=== PATIENT | male | born 1980 | race Hispanic/Latino ===

== ENCOUNTER 2017-10-08 23:55 | Inpatient (IN) | payer OTHER ==
[2017-10-09 00:57] LABS: BASO # 0.1 K/uL (0.0-0.2); BASO % 0.4 % (0.0-2.0); EOS % 0.1 % (0.0-4.0); HEMOGLOBIN 15.5 g/dL (12.0-18.0); LYMPH # 1.7 K/uL (1.0-4.3); LYMPH % 12.5 % (20.0-40.0); MEAN CELL VOLUME 83.9 fL (80.0-94.0); MEAN CORPUSCULAR HEMOGLOBIN 28.3 pg (27.0-31.0); MEAN CORPUSCULAR HGB CONC 33.7 g/dL (33.0-37.0); MEAN PLATELET VOLUME 8.5 fL (7.2-11.7); MONO # 0.8 K/uL (0.0-0.8); NEUT # 11.2 K/uL (1.8-7.0); RBC 5.48 Mil/uL (4.40-5.90); RED CELL DISTRIBUTION WIDTH 13.3 % (11.5-14.5); WHITE BLOOD COUNT 13.8 K/uL (4.8-10.8)
--- NOTE | 2017-10-09 01:04 | C.PDOC ---
History Of Present Illness 36 year old male with prior history is heroin abuse presents to the ED for evaluation of chest pain for a few days. Patient reports pain is mostly right upper back radiating towards the front, worsens with deep breaths. Patient admits to using heroin today, however patient states " I am not an addict, I only use heroin recreationally". Patient denies injury, fall, trauma, nausea, vomit, diarrhea, weakness, numbness. Time Seen by Provider: 10/09/17 00:10 Chief Complaint (Nursing): Chest Pain History Per: Patient History/Exam Limitations: no limitations Onset/Duration Of Symptoms: Days Current Symptoms Are (Timing): Still Present Associated Symptoms: denies: Nausea, Dyspnea, Diaphoresis Exacerbating Factors: Deep Breathing Alleviating Factors: None Recent travel outside of the [place]: No Additional History Per: Patient Past Medical History Reviewed: Historical Data, Nursing Documentation, Vital Signs Vital Signs: Last Vital Signs Temp 98.8 F 10/09/17 06:20 Pulse 65 10/09/17 06:20 Resp 18 10/09/17 07:47 BP 113/74 10/09/17 06:20 Pulse Ox 98 10/09/17 06:20 - Medical History PMH: No Chronic Diseases Surgical History: No Surg Hx Family History: States: Unknown Family Hx - Social History Hx Alcohol Use: No (DENIED) Hx Substance Use: Yes Review Of Systems Except As Marked, All Systems Reviewed And Found Negative. Cardiovascular: Positive for: Chest Pain Musculoskeletal: Positive for: Back Pain Physical Exam - Physical Exam Appears: Non-toxic, No Acute Distress Skin: Normal Color, Warm, Dry Head: Atraumatic, Normacephalic Eye(s): bilateral: Normal Inspection Neck: Normal ROM, Supple Chest: Symmetrical Cardiovascular: Rhythm Regular Respiratory: Normal Breath Sounds, No Rales, No Rhonchi, No Wheezing Gastrointestinal/Abdominal: Soft, No Tenderness, No Guarding, No Rebound Extremity: Normal ROM, No Tenderness, No Swelling Neurological/Psych: Oriented x3, Normal Speech Gait: Steady ED Course And Treatment - Laboratory Results Result Diagrams: 10/09/17 05:09 10/09/17 05:09 ECG: Interpreted By Me, Viewed By Me ECG Rhythm: Sinus Rhythm ECG Interpretation: Normal, No Acute Changes Rate From EC (BPM) O2 Sat by Pulse Oximetry: 95 (On RA) Pulse Ox Interpretation: Normal - CT Scan/US CTA chest Other Rad Studies (CT/US): Read By Radiologist, Radiology Report Reviewed CT/US Interpretation: EXAM: CT Angiography Chest Without And With Intravenous Contrast. CT Angiography Abdomen and Pelvis Without And With Intravenous Contrast. CLINICAL HISTORY: 36 years old, male; Pain; Other: Back; Chest pain ; Type not specified; Additional info: Cp/back pain. elevated dimer h/o of ivda. TECHNIQUE: Axial computed tomographic angiography images of the chest, abdomen and pelvis without and with. intravenous contrast using CT angiography protocol. All CT scans at this facility use at least one of. these dose optimization techniques: automated exposure control; mA and/or kV adjustment per. patient size (includes targeted exams where dose is matched to clinical indication); or iterative. reconstruction. 1141 images are submitted.Sagittal and coronal MPR reformatted images are. submitted focal enhanced and unenhanced images. CONTRAST: 100 mL of [id number] administered intravenously. COMPARISON: No relevant prior studies available. FINDINGS: VASCULATURE: Aorta: No acute findings. No aortic aneurysm. No dissection. Pulmonary arteries : Unremarkable. No pulmonary embolism is identified. Great vessels of aortic arch: No acute findings. No dissection. No arterial occlusion or significant. stenosis. Celiac trunk and mesenteric arteries: No acute findings. No occlusion or significant stenosis. Renal arteries: No acute findings. No occlusion or significant stenosis. Iliac arteries: No acute findings. No occlusion or significant stenosis. CHEST: ALY ELLIS | Preliminary Radiology Report. CONFIDENTIALITY STATEMENT. This report is intended only for the use of the referring physician , and only in accordance with law, If you received this in error, call . Page 2 of 2. Lungs: Mild parabronchial cuffing, with basilar haziness which can be seen with bronchitis, reactive. airway disease or viral pneumonitis versus mild failure. Pleural space: Unremarkable. No significant effusion. No pneumothorax. Heart: Minimal pericardial fluid. Mediastinum: Small hiatal hernia. ABDOMEN: Liver: Fatty liver. Gallbladder and bile ducts : Hyperdense gallbladder sludge or stones. No ductal dilation. Pancreas: Unremarkable. No ductal dilation. No mass. Spleen: Heterogeneous spleen secondary to phase of scanning. Adrenals: Unremarkable. No mass. Kidneys and ureters: Faint densities in the medullary regions of both kidneys are somewhat. nonspecific, perhaps reflecting dense solute, Demetri's plaque, tiny calcifications, or other debris. Nonobstructive left renal stone. Stomach and bowel: Diverticulosis. Nonspecific colonic thickening likely due to under distention. versus nonspecific colitis. There are nonspecific fluid filled stomach, small bowel loops. These. findings can represent ileus versus gastroenteritis/enteritis versus slow transit versus peristalsis. PELVIS: Appendix: Normal appendix. Bladder: Unremarkable. No stones. No mass. Reproductive: Unremarkable. CHEST, ABDOMEN and PELVIS: Intraperitoneal space: Unremarkable. No significant fluid collection. No free air. Bones/joints: L5- S1 vacuum disc. No acute fracture. No dislocation. Soft tissues: There is a fat -containing umbilical hernia. Lymph nodes: Right hilar lymph nodes. IMPRESSION : 1. Mild parabronchial cuffing, with basilar haziness which can be seen with bronchitis, reactive airway. disease or viral pneumonitis versus mild failure. 2. No acute vascular abnormalities identified. Thank you for allowing us to participate in the care of your patient. Dictated and Authenticated by: Maryjane Blanchard MD. 10/09/2017 3:06 AM Eastern Time ([place] & [place]) Medical Decision Making Medical Decision Making: cp/back pain ro dissection, pe, epidural abscess Plan: * EKG * Labs * CXR * Tylenol 975 mg PO * Zofran 4 mg IVP * UA * noted dimer. suspcion of dissection vs pe. b/p also 90s systolic. concern that pt may need tpa for possible massive pe. discussed risk benefit with pt. consent for iv contrast. Disposition - Disposition Disposition: AGAINST MEDICAL ADVICE Disposition Time: 04:00 Condition: STABLE - Clinical Impression Clinical Impression: Chest pain, Elevated d-dimer, Renal insufficiency, Back pain, Leukocytosis - Scribe Statement The provider has reviewed the documentation as recorded by the Scribe Jeff Bolanos All medical record entries made by the Scribe were at my direction and personally dictated by me. I have reviewed the chart and agree that the record accurately reflects my personal performance of the history, physical exam, medical decision making, and the department course for this patient. I have also personally directed, reviewed, and agree with the discharge instructions and disposition.
[2017-10-09 01:14] LABS: ALB/GLOB RATIO 1.4 (1.0-2.1); ALBUMIN 4.6 g/dL (3.5-5.0); CALCIUM 9.3 mg/dl (8.6-10.4)
[2017-10-09 01:25] LABS: TROPONIN I 0.015 ng/mL (0.00-0.120)
[2017-10-09 01:44] LABS: INR 1.1; PROTHROMBIN TIME 12.2 SECONDS (9.7-12.2)
[2017-10-09] MEDS ORDERED: Sodium Chloride 0.9% 1,000 ML IV ONE ×2 (01:50→05:55)
[2017-10-09] MEDS ORDERED: Sodium Chloride 0.9% 1,000 ML ONE ×2 (02:02→03:38)
[2017-10-09] MEDS ORDERED: Iodixanol 320 MG/ML 100 ML BOTTLE IV ONE (02:07)
[2017-10-09 02:29] LABS: GRANULAR CAST 341 /lpf (0-1); SQUAMOUS EPITHIAL 5 /hpf (0-5); URINE BACTERIA RARE (<OCC); URINE BILIRUBIN NEGATIVE (NEGATIVE); URINE BLOOD NEGATIVE (NEGATIVE); URINE CLARITY Hazy (Clear); URINE COLOR Amber (YELLOW); URINE GLUCOSE (UA) NORMAL (Normal); URINE HYALINE CAST >20 /lpf (0-2); URINE LEUKOCYTE ESTERASE NEG Leu/uL (Negative); URINE PROTEIN 2+ mg/dL (NEGATIVE); URINE UROBILINOGEN NORMAL mg/dL (0.2-1.0)
[2017-10-09] MEDS ORDERED: DEXTROSE 5% IVPB STA ×2 (03:11→03:26)
[2017-10-09] MEDS ORDERED: WATER IVPB STA ×2 (03:11→03:26)
[2017-10-09] MEDS ORDERED: ACETYLCYSTEINE IVPB STA ×2 (03:11→03:26)
[2017-10-09] MEDS ORDERED: Sodium Chloride 0.9% 1,000 ML IV SCH ×2 (03:15→03:45)
--- NOTE | 2017-10-09 03:49 | CP.PCM.HP ---
<Aashish Sanchez P - Last Filed: 10/09/17 06:34> Meds Allergies/Adverse Reactions: Allergies Allergy/AdvReac Type Severity Reaction Status Date / Time No Known Allergies Allergy Unverified 10/09/17 00:10 Results - Vital Signs Recent Vital Signs: Last Vital Signs Temp 98.5 F 10/09/17 05:44 Pulse 67 10/09/17 05:44 Resp 20 10/09/17 05:44 BP 100/65 10/09/17 05:44 Pulse Ox 99 10/09/17 05:44 - Labs Result Diagrams: 10/09/17 05:09 10/09/17 05:09 Labs: Laboratory Results - last 24 hr 10/09/17 10/09/17 10/09/17 00:49 00:49 00:49 WBC 13.8 H RBC 5.48 Hgb 15.5 Hct 45.9 MCV 83.9 MCH 28.3 MCHC 33.7 RDW 13.3 Plt Count 407 H MPV 8.5 Neut % (Auto) 81.0 H Lymph % (Auto) 12.5 L [place] % (Auto) 6.0 Eos % (Auto) 0.1 Baso % (Auto) 0.4 Neut # (Auto) 11.2 H Lymph # (Auto) 1.7 [place] # (Auto) 0.8 Eos # (Auto) 0.0 Baso # (Auto) 0.1 PT 12.2 INR 1.1 APTT 34 D-Dimer, Quantitative 2716 H Sodium 145 Potassium 5.2 Chloride 101 Carbon Dioxide 29 Anion Gap 20 BUN 26 H Creatinine 1.9 H Est GFR ( Amer) 49 Est GFR (Non-Af Amer) 41 Random Glucose 113 H Calcium 9.3 Phosphorus Magnesium Total Bilirubin 0.8 AST 22 ALT 28 Alkaline Phosphatase 75 Troponin I 0.0150 Total Protein 7.9 Albumin 4.6 Globulin 3.3 Albumin/Globulin Ratio 1.4 Triglycerides Cholesterol LDL Cholesterol Direct HDL Cholesterol Free T4 TSH 3rd Generation Urine Color Urine Clarity Urine pH Ur Specific [place] Urine Protein Urine Glucose (UA) Urine Ketones Urine Blood Urine Nitrate Urine Bilirubin Urine Urobilinogen Ur Leukocyte Esterase Urine WBC (Auto) Urine RBC (Auto) Ur Squamous Epith Cells Urine Bacteria Hyaline Casts Granular Casts (Auto) 10/09/17 10/09/17 10/09/17 02:17 05:09 05:09 WBC 10.7 RBC 5.07 Hgb 14.6 Hct 42.5 MCV 83.9 MCH 28.7 MCHC 34.3 RDW 13.0 Plt Count 354 MPV 8.5 Neut % (Auto) 69.3 Lymph % (Auto) 21.8 [place] % (Auto) 8.1 Eos % (Auto) 0.4 Baso % (Auto) 0.4 Neut # (Auto) 7.4 H Lymph # (Auto) 2.3 [place] # (Auto) 0.9 H Eos # (Auto) 0.0 Baso # (Auto) 0.0 PT INR APTT D-Dimer, Quantitative Sodium 140 Potassium 4.7 Chloride 102 Carbon Dioxide 28 Anion Gap 15 BUN 25 H Creatinine 1.4 Est GFR ( Amer) > 60 Est GFR (Non-Af Amer) 58 Random Glucose 102 Calcium 8.4 L Phosphorus 3.7 Magnesium 2.0 Total Bilirubin 0.8 AST 20 ALT 28 Alkaline Phosphatase 63 Troponin I Total Protein 6.9 Albumin 3.9 Globulin 3.0 Albumin/Globulin Ratio 1.3 Triglycerides Cholesterol LDL Cholesterol Direct HDL Cholesterol Free T4 TSH 3rd Generation Urine Color Mayra Urine Clarity Hazy Urine pH 6.0 Ur Specific [place] 1.024 Urine Protein 2+ H Urine Glucose (UA) Normal Urine Ketones Negative Urine Blood Negative Urine Nitrate Negative Urine Bilirubin Negative Urine Urobilinogen Normal Ur Leukocyte Esterase Neg Urine WBC (Auto) 33 H Urine RBC (Auto) 12 H Ur Squamous Epith Cells 5 Urine Bacteria Rare Hyaline Casts >20 H Granular Casts (Auto) 341 10/09/17 10/09/17 05:09 05:09 WBC RBC Hgb Hct MCV MCH MCHC RDW Plt Count MPV Neut % (Auto) Lymph % (Auto) [place] % (Auto) Eos % (Auto) Baso % (Auto) Neut # (Auto) Lymph # (Auto) [place] # (Auto) Eos # (Auto) Baso # (Auto) PT INR APTT D-Dimer, Quantitative Sodium Potassium Chloride Carbon Dioxide Anion Gap BUN Creatinine Est GFR ( Amer) Est GFR (Non-Af Amer) Random Glucose Calcium Phosphorus Magnesium Total Bilirubin AST ALT Alkaline Phosphatase Troponin I Total Protein Albumin Globulin Albumin/Globulin Ratio Triglycerides 97 Cholesterol 149 LDL Cholesterol Direct 76 HDL Cholesterol 35 Free T4 1.00 TSH 3rd Generation 2.50 Urine Color Urine Clarity Urine pH Ur Specific [place] Urine Protein Urine Glucose (UA) Urine Ketones Urine Blood Urine Nitrate Urine Bilirubin Urine Urobilinogen Ur Leukocyte Esterase Urine WBC (Auto) Urine RBC (Auto) Ur Squamous Epith Cells Urine Bacteria Hyaline Casts Granular Casts (Auto) Attending/Attestation - Attestation I have personally seen and examined this patient.: Yes I have fully participated in the care of the patient.: Yes I have reviewed all pertinent clinical information: Yes Notes (Text): 10/09/17 06:34 Right side back/chest pain likely form cervical radiculopathy GE Pre renal and ATN picture IV contrast Plan Hydrate Supportive care for GE GI/DVT prophylaxis Avoid any nephrotoxic meds PRN cervical soft collar, tramadol See orders for detail. <Asia Feng - Last Filed: 10/09/17 06:50> History of Present Illness - History of Present Illness History of Present Illness: Medicine Note for Hospitalist Service CC: Right sided back pain that radiates to the chest x 1 week, n/v/d x 2 days HPI: This is a 36 year old male with PMHx of IVDA who presented to the ED with right sided back pain that radiates to the chest x 1 week, n/v/d x 2 days. Patient reports 1 week ago, patient started to feel upper right back pain that was constant, sharp, stabbing in nature 610, that radiated to the middle aspect of his chest. Denied any associated diaphoresis, palpitations, dyspnea on exertion, fatigue, or shortness of breath. Patient reports the pain is worse based on position, deep inspiration and cough. Due to the pain, he had to sleep slightly inclined. Nothing makes the pain better, did not try any OTC medications for the pain. The pain remained the same throughout the week. Patient was able to go to work and carry on with his daily activities. During this 1 week, patient relapsed on heroine, denied any incident or stressors that provoked him to relapse from 5 years of sobriety. He used 1 bag, on 2 separate occasions 2 days apart after the back pain started. Patient started to have nausea, vomiting, and diarrhea 2 days prior to admission, with 5-10 nonbloody, bilious episodes per day. He has been unable to keep any food or liquids down. Admitted his girlfriend has similar symptoms. Denied any associated fever, chills, recent travel, unusual or outside food. PMHx: Hx IVDA PSHx: Denied Meds: Denied All: NKDA SHx: Admitted to heroine use, used for 2-3 years, 2-3 bags, 1-2 times a week; was clean for 5 years after, relapsed and used twice last week- 1 bag IV); denied any tobacco or alcohol use. 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 FHx: Unremarkable for cardiac issues, stroke, or cancer Present on Admission - Present on Admission Any Indicators Present on Admission: No Past Patient History - Past Social History Smoking Status: DENIED - PSYCHIATRIC Hx Substance Use: Yes - SURGICAL HISTORY Hx Surgeries: No Physical Exam - Constitutional Appears: No Acute Distress - Head Exam Head Exam: ATRAUMATIC, NORMAL INSPECTION, NORMOCEPHALIC - Eye Exam Eye Exam: EOMI, Normal appearance, PERRL. absent: Nystagmus, Scleral icterus Pupil Exam: NORMAL ACCOMODATION, PERRL - ENT Exam ENT Exam: Mucous Membranes Dry - Neck Exam Neck exam: Positive for: Full Rom, Normal Inspection. Negative for: Lymphadenopathy, Thyromegaly Additional comments: Spurling exam performed - caused radiation to right upper back - Respiratory Exam Respiratory Exam: NORMAL BREATHING PATTERN. absent: Decreased Breath Sounds, Clear to Auscultation Bilateral, Rales, Rhonchi, Wheezes - Cardiovascular Exam Cardiovascular Exam: REGULAR RHYTHM, +S1, +S2. absent: Bradycardia, Tachycardia , Diastolic murmur, Systolic Murmur - GI/Abdominal Exam GI & Abdominal Exam: Normal Bowel Sounds, Soft. absent: Distended, Tenderness - Rectal Exam Rectal Exam: Deferred - Extremities Exam Extremities exam: Positive for: normal inspection, pedal pulses present. Negative for: pedal edema, tenderness Additional comments: multiple scars noted on upper and lower extremities - patient reports 2/2 to his construction job no tract lizama noted - Back Exam Back exam: FULL ROM, NORMAL INSPECTION. absent: CVA tenderness (L), CVA tenderness (R), muscle spasm, paraspinal tenderness, rash noted, tenderness, vertebral tenderness - Neurological Exam Neurological exam: Alert, CN II-XII Intact, Oriented x3 - Psychiatric Exam Psychiatric exam: Normal Affect, Normal Mood - Skin Skin Exam: Dry, Intact, Normal Color, Warm Results - Vital Signs Recent Vital Signs: Last Vital Signs Temp 98.2 F 10/09/17 02:47 Pulse 66 10/09/17 02:47 Resp 20 10/09/17 02:47 BP 93/47 L 10/09/17 02:47 Pulse Ox 95 10/09/17 03:20 - Labs Result Diagrams: 10/09/17 05:09 10/09/17 05:09 Labs: Laboratory Results - last 24 hr 10/09/17 10/09/17 10/09/17 00:49 00:49 00:49 WBC 13.8 H RBC 5.48 Hgb 15.5 Hct 45.9 MCV 83.9 MCH 28.3 MCHC 33.7 RDW 13.3 Plt Count 407 H MPV 8.5 Neut % (Auto) 81.0 H Lymph % (Auto) 12.5 L [place] % (Auto) 6.0 Eos % (Auto) 0.1 Baso % (Auto) 0.4 Neut # (Auto) 11.2 H Lymph # (Auto) 1.7 [place] # (Auto) 0.8 Eos # (Auto) 0.0 Baso # (Auto) 0.1 PT 12.2 INR 1.1 APTT 34 D-Dimer, Quantitative 2716 H Sodium 145 Potassium 5.2 Chloride 101 Carbon Dioxide 29 Anion Gap 20 BUN 26 H Creatinine 1.9 H Est GFR ( Amer) 49 Est GFR (Non-Af Amer) 41 Random Glucose 113 H Calcium 9.3 Total Bilirubin 0.8 AST 22 ALT 28 Alkaline Phosphatase 75 Troponin I 0.0150 Total Protein 7.9 Albumin 4.6 Globulin 3.3 Albumin/Globulin Ratio 1.4 Urine Color Urine Clarity Urine pH Ur Specific [place] Urine Protein Urine Glucose (UA) Urine Ketones Urine Blood Urine Nitrate Urine Bilirubin Urine Urobilinogen Ur Leukocyte Esterase Urine WBC (Auto) Urine RBC (Auto) Ur Squamous Epith Cells Urine Bacteria Hyaline Casts Granular Casts (Auto) 10/09/17 02:17 WBC RBC Hgb Hct MCV MCH MCHC RDW Plt Count MPV Neut % (Auto) Lymph % (Auto) [place] % (Auto) Eos % (Auto) Baso % (Auto) Neut # (Auto) Lymph # (Auto) [place] # (Auto) Eos # (Auto) Baso # (Auto) PT INR APTT D-Dimer, Quantitative Sodium Potassium Chloride Carbon Dioxide Anion Gap BUN Creatinine Est GFR ( Amer) Est GFR (Non-Af Amer) Random Glucose Calcium Total Bilirubin AST ALT Alkaline Phosphatase Troponin I Total Protein Albumin Globulin Albumin/Globulin Ratio Urine Color [place]ra Urine Clarity Hazy Urine pH 6.0 Ur Specific [place] 1.024 Urine Protein 2+ H Urine Glucose (UA) Normal Urine Ketones Negative Urine Blood Negative Urine Nitrate Negative Urine Bilirubin Negative Urine Urobilinogen Normal Ur Leukocyte Esterase Neg Urine WBC (Auto) 33 H Urine RBC (Auto) 12 H Ur Squamous Epith Cells 5 Urine Bacteria Rare Hyaline Casts >20 H Granular Casts (Auto) 341 Assessment & Plan - Assessment and Plan (Free Text) Assessment: This is a 36 year old male with PMHx of IVDA who presented to the ED with right sided back pain that radiates to the chest x 1 week, n/v/d x 2 days. Aortic Dissection study ordered - negative. Currently in NAVEEN, admitted for IV hydration. Plan: NAVEEN - On admission creatinine 1.9 - Received IV contrast for dissection study - Given 2 L bolus, currently on IVF @150 cc/hr - Creatinine 1.4 this morning - Will continue IVF, Mucomyst 3ml PO Q12H x 2 doses, and oral hydration Back Pain with radiation to Chest - EKG NSR @ 74 BPM, BHARATHI negative - D-dimer elevated at 2716 - Aortic Dissection Study Ordered by ED - negative for PE or Dissection - Likely 2/2 neuropathy - No family history of cardiac issues, no risk factors - Reproducible during Spurling's exam - Will observe on Med/Surg floor, not cardiac in origin Leukocytosis - Likely stress reaction 2/2 to multiple episodes of nausea, vomiting, and diarrhea - Afebrile, left shift on admission, which has now resolved - No evidence of infectious process such as pneumonia or colitis on CT Scan - Resolved on repeat labs Hx IVDA - Admitted to prior heroine use - Relapsed from 5 years sobriety - Does not want detox now, on discharge will provide him with hotlines and centers for future reference - No fever, not concerned for endocarditis Prophylactic Measures - GI PPX: Protonix - DVT PPX: SCDs, HEP Q12 - FLD, will ADAT - Will observe on Med/Surg floor, not cardiac in origin ANGLE Sanchez, Asia Feng DO, PGY-2
[2017-10-09 05:13] LABS: BASO % 0.4 % (0.0-2.0); EOS % 0.4 % (0.0-4.0); HEMOGLOBIN 14.6 g/dL (12.0-18.0); LYMPH # 2.3 K/uL (1.0-4.3); LYMPH % 21.8 % (20.0-40.0); MEAN CELL VOLUME 83.9 fL (80.0-94.0); MEAN CORPUSCULAR HEMOGLOBIN 28.7 pg (27.0-31.0); MEAN CORPUSCULAR HGB CONC 34.3 g/dL (33.0-37.0); MEAN PLATELET VOLUME 8.5 fL (7.2-11.7); MONO # 0.9 K/uL (0.0-0.8); MONO % 8.1 % (0.0-10.0); NEUT # 7.4 K/uL (1.8-7.0); NEUT % 69.3 % (50.0-75.0); NRBC % 0.1 % (0.0-2.0); RBC 5.07 Mil/uL (4.40-5.90); WHITE BLOOD COUNT 10.7 K/uL (4.8-10.8)
[2017-10-09 05:29] LABS: ALB/GLOB RATIO 1.3 (1.0-2.1); ALBUMIN 3.9 g/dL (3.5-5.0); ALT/SGPT 28 U/L (21-72); AST/SGOT 20 U/L (17-59); BLOOD UREA NITROGEN 25 mg/dL (9-20); CALCIUM 8.4 mg/dl (8.6-10.4); GFR AFRICAN-AMERICAN > 60; GFR NON-AFRICAN AMERICAN 58
[2017-10-09 06:42] VITALS: BP 113/74; PULSE 65; TEMP 98.8
[2017-10-09 07:48] VITALS: RESP 18
[2017-10-09] MEDS ORDERED: Albuterol-Ipratrop 3 mg / 0.5 (3 ml) UD INH SCH (08:00)
--- NOTE | 2017-10-09 08:05 | CP.PCM.DIS ---
<Asia Feng - Last Filed: 10/09/17 08:03> Provider - Provider Date of Admission: 10/09/17 03:12 Attending physician: Deysi Mathis DO Time Spent in preparation of Discharge (in minutes): 55 Hospital Course - Lab Results Lab Results: Most Recent Lab Values WBC 10.7 K/uL (4.8-10.8) 10/09/17 05:09 RBC 5.07 Mil/uL (4.40-5.90) 10/09/17 05:09 Hgb 14.6 g/dL (12.0-18.0) 10/09/17 05:09 Hct 42.5 % (35.0-51.0) 10/09/17 05:09 MCV 83.9 fL (80.0-94.0) 10/09/17 05:09 MCH 28.7 pg (27.0-31.0) 10/09/17 05:09 MCHC 34.3 g/dL (33.0-37.0) 10/09/17 05:09 RDW 13.0 % (11.5-14.5) 10/09/17 05:09 Plt Count 354 K/uL (130-400) 10/09/17 05:09 MPV 8.5 fL (7.2-11.7) 10/09/17 05:09 Neut % (Auto) 69.3 % (50.0-75.0) 10/09/17 05:09 Lymph % (Auto) 21.8 % (20.0-40.0) 10/09/17 05:09 [place] % (Auto) 8.1 % (0.0-10.0) 10/09/17 05:09 Eos % (Auto) 0.4 % (0.0-4.0) 10/09/17 05:09 Baso % (Auto) 0.4 % (0.0-2.0) 10/09/17 05:09 Neut # (Auto) 7.4 K/uL (1.8-7.0) H 10/09/17 05:09 Lymph # (Auto) 2.3 K/uL (1.0-4.3) 10/09/17 05:09 [place] # (Auto) 0.9 K/uL (0.0-0.8) H 10/09/17 05:09 Eos # (Auto) 0.0 K/uL (0.0-0.7) 10/09/17 05:09 Baso # (Auto) 0.0 K/uL (0.0-0.2) 10/09/17 05:09 PT 12.2 SECONDS (9.7-12.2) 10/09/17 00:49 INR 1.1 10/09/17 00:49 APTT 34 SECONDS (21-34) 10/09/17 00:49 D-Dimer, Quantitative 2716 ng/mlDDU (0-243) H 10/09/17 00:49 Sodium 140 mmol/L (132-148) 10/09/17 05:09 Potassium 4.7 mmol/L (3.6-5.2) 10/09/17 05:09 Chloride 102 mmol/L (98-107) 10/09/17 05:09 Carbon Dioxide 28 mmol/L (22-30) 10/09/17 05:09 Anion Gap 15 (10-20) 10/09/17 05:09 BUN 25 mg/dL (9-20) H 10/09/17 05:09 Creatinine 1.4 mg/dL (0.8-1.5) 10/09/17 05:09 Est GFR ( Amer) > 60 10/09/17 05:09 Est GFR (Non-Af Amer) 58 10/09/17 05:09 Random Glucose 102 mg/dL (75-110) 10/09/17 05:09 Calcium 8.4 mg/dl (8.6-10.4) L 10/09/17 05:09 Phosphorus 3.7 mg/dL (2.5-4.5) 10/09/17 05:09 Magnesium 2.0 mg/dL (1.6-2.3) 10/09/17 05:09 Total Bilirubin 0.8 mg/dL (0.2-1.3) 10/09/17 05:09 AST 20 U/L (17-59) 10/09/17 05:09 ALT 28 U/L (21-72) 10/09/17 05:09 Alkaline Phosphatase 63 U/L (38-126) 10/09/17 05:09 Troponin I 0.0150 ng/mL (0.00-0.120) 10/09/17 00:49 Total Protein 6.9 g/dL (6.3-8.3) 10/09/17 05:09 Albumin 3.9 g/dL (3.5-5.0) 10/09/17 05:09 Globulin 3.0 gm/dL (2.2-3.9) 10/09/17 05:09 Albumin/Globulin Ratio 1.3 (1.0-2.1) 10/09/17 05:09 Triglycerides 97 mg/dL (0-149) 10/09/17 05:09 Cholesterol 149 mg/dL (0-199) 10/09/17 05:09 LDL Cholesterol Direct 76 mg/dL (0-129) 10/09/17 05:09 HDL Cholesterol 35 mg/dL (30-70) 10/09/17 05:09 Free T4 1.00 ng/dL (0.78-2.19) 10/09/17 05:09 TSH 3rd Generation 2.50 mIU/L (0.46-4.68) 10/09/17 05:09 Urine Color Mayra (YELLOW) 10/09/17 02:17 Urine Clarity Hazy (Clear) 10/09/17 02:17 Urine pH 6.0 (5.0-8.0) 10/09/17 02:17 Ur Specific [place] 1.024 (1.003-1.030) 10/09/17 02:17 Urine Protein 2+ mg/dL (NEGATIVE) H 10/09/17 02:17 Urine Glucose (UA) Normal mg/dL (Normal) 10/09/17 02:17 Urine Ketones Negative mg/dL (NEGATIVE) 10/09/17 02:17 Urine Blood Negative (NEGATIVE) 10/09/17 02:17 Urine Nitrate Negative (NEGATIVE) 10/09/17 02:17 Urine Bilirubin Negative (NEGATIVE) 10/09/17 02:17 Urine Urobilinogen Normal mg/dL (0.2-1.0) 10/09/17 02:17 Ur Leukocyte Esterase Neg Ascencion/uL (Negative) 10/09/17 02:17 Urine WBC (Auto) 33 /hpf (0-5) H 10/09/17 02:17 Urine RBC (Auto) 12 /hpf (0-3) H 10/09/17 02:17 Ur Squamous Epith Cells 5 /hpf (0-5) 10/09/17 02:17 Urine Bacteria Rare (<OCC) 10/09/17 02:17 Hyaline Casts >20 /lpf (0-2) H 10/09/17 02:17 Granular Casts (Auto) 341 /lpf (0-1) 10/09/17 02:17 - Hospital Course Hospital Course: Upon Admission: CC: Right sided back pain that radiates to the chest x 1 week, n /v/d x 2 days HPI: This is a 36 year old male with PMHx of IVDA who presented to the ED with right sided back pain that radiates to the chest x 1 week, n/v/d x 2 days. Patient reports 1 week ago, patient started to feel upper right back pain that was constant, sharp, stabbing in nature 09/03, that radiated to the middle aspect of his chest. Denied any associated diaphoresis, palpitations, dyspnea on exertion, fatigue, or shortness of breath. Patient reports the pain is worse based on position, deep inspiration and cough. Due to the pain, he had to sleep slightly inclined. Nothing makes the pain better, did not try any OTC medications for the pain. The pain remained the same throughout the week. Patient was able to go to work and carry on with his daily activities. During this 1 week, patient relapsed on heroine, denied any incident or stressors that provoked him to relapse from 5 years of sobriety. He used 1 bag, on 2 separate occasions 2 days apart after the back pain started. Patient started to have nausea, vomiting, and diarrhea 2 days prior to admission, with 5-10 nonbloody, bilious episodes per day. He has been unable to keep any food or liquids down. Admitted his girlfriend has similar symptoms. Denied any associated fever, chills, recent travel, unusual or outside food. PMHx: Hx IVDA PSHx: Denied Meds: Denied All: NKDA SHx: Admitted to heroine use, used for 2-3 years, 2-3 bags, 1-2 times a week; was clean for 5 years after, relapsed and used twice last week- 1 bag IV); denied any tobacco or alcohol use. 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 FHx: Unremarkable for cardiac issues, stroke, or cancer Throughout Hospital Course: NAVEEN - On admission creatinine 1.9 - Received IV contrast for dissection study - Given 2 L bolus, currently on IVF @150 cc/hr - Creatinine 1.4 this morning - Will continue IVF, Mucomyst 3ml PO Q12H x 2 doses, and oral hydration Back Pain with radiation to Chest - EKG NSR @ 74 BPM, BHARATHI negative - D-dimer elevated at 2716 - Aortic Dissection Study Ordered by ED - negative for PE or Dissection - Likely 2/2 neuropathy - No family history of cardiac issues, no risk factors - Reproducible during Spurling's exam - Will observe on Med/Surg floor, not cardiac in origin Leukocytosis - Likely stress reaction 2/2 to multiple episodes of nausea, vomiting, and diarrhea - Afebrile, left shift on admission, which has now resolved - No evidence of infectious process such as pneumonia or colitis on CT Scan - Resolved on repeat labs Hx IVDA - Admitted to prior heroine use - Relapsed from 5 years sobriety - Does not want detox now, on discharge will provide him with hotlines and centers for future reference - No fever, not concerned for endocarditis Prophylactic Measures - GI PPX: Protonix - DVT PPX: SCDs, HEP Q12 - FLD, will ADAT - Will observe on Med/Surg floor, not cardiac in origin Disposition: Patient signed out against medical advice. Patient understood the risks of leaving against medical advice. He states he understands and signed the AMA form with the house resident and a witness. Discharge Exam - Additional Findings Additional findings: - Constitutional Appears: No Acute Distress - Head Exam Head Exam: ATRAUMATIC, NORMAL INSPECTION, NORMOCEPHALIC - Eye Exam Eye Exam: EOMI, Normal appearance, PERRL. absent: Nystagmus, Scleral icterus Pupil Exam: NORMAL ACCOMODATION, PERRL - ENT Exam ENT Exam: Mucous Membranes Dry - Neck Exam Neck exam: Positive for: Full Rom, Normal Inspection. Negative for: Lymphadenopathy, Thyromegaly Additional comments: Spurling exam performed - caused radiation to right upper back - Respiratory Exam Respiratory Exam: NORMAL BREATHING PATTERN. absent: Decreased Breath Sounds, Clear to Auscultation Bilateral, Rales, Rhonchi, Wheezes - Cardiovascular Exam Cardiovascular Exam: REGULAR RHYTHM, +S1, +S2. absent: Bradycardia, Tachycardia , Diastolic murmur, Systolic Murmur - GI/Abdominal Exam GI & Abdominal Exam: Normal Bowel Sounds, Soft. absent: Distended, Tenderness - Rectal Exam Rectal Exam: Deferred - Extremities Exam Extremities exam: Positive for: normal inspection, pedal pulses present. Negative for: pedal edema, tenderness Additional comments: multiple scars noted on upper and lower extremities - patient reports 2/2 to his construction job no tract lizama noted - Back Exam Back exam: FULL ROM, NORMAL INSPECTION. absent: CVA tenderness (L), CVA tenderness (R), muscle spasm, paraspinal tenderness, rash noted, tenderness, vertebral tenderness - Neurological Exam Neurological exam: Alert, CN II-XII Intact, Oriented x3 - Psychiatric Exam Psychiatric exam: Normal Affect, Normal Mood - Skin Skin Exam: Dry, Intact, Normal Color, Warm Discharge Plan - Follow Up Plan Condition: STABLE Disposition: AGAINST MEDICAL ADVICE Instructions: Back Pain (GEN) <Deysi Mathis V - Last Filed: 10/09/17 23:05> Provider - Provider Date of Admission: 10/09/17 03:12 Attending physician: Deysi Mathis DO [facility] Course - Lab Results Lab Results: Most Recent Lab Values WBC 10.7 K/uL (4.8-10.8) 10/09/17 05:09 RBC 5.07 Mil/uL (4.40-5.90) 10/09/17 05:09 Hgb 14.6 g/dL (12.0-18.0) 10/09/17 05:09 Hct 42.5 % (35.0-51.0) 10/09/17 05:09 MCV 83.9 fL (80.0-94.0) 10/09/17 05:09 MCH 28.7 pg (27.0-31.0) 10/09/17 05:09 MCHC 34.3 g/dL (33.0-37.0) 10/09/17 05:09 RDW 13.0 % (11.5-14.5) 10/09/17 05:09 Plt Count 354 K/uL (130-400) 10/09/17 05:09 MPV 8.5 fL (7.2-11.7) 10/09/17 05:09 Neut % (Auto) 69.3 % (50.0-75.0) 10/09/17 05:09 Lymph % (Auto) 21.8 % (20.0-40.0) 10/09/17 05:09 [place] % (Auto) 8.1 % (0.0-10.0) 10/09/17 05:09 Eos % (Auto) 0.4 % (0.0-4.0) 10/09/17 05:09 Baso % (Auto) 0.4 % (0.0-2.0) 10/09/17 05:09 Neut # (Auto) 7.4 K/uL (1.8-7.0) H 10/09/17 05:09 Lymph # (Auto) 2.3 K/uL (1.0-4.3) 10/09/17 05:09 [place] # (Auto) 0.9 K/uL (0.0-0.8) H 10/09/17 05:09 Eos # (Auto) 0.0 K/uL (0.0-0.7) 10/09/17 05:09 Baso # (Auto) 0.0 K/uL (0.0-0.2) 10/09/17 05:09 PT 12.2 SECONDS (9.7-12.2) 10/09/17 00:49 INR 1.1 10/09/17 00:49 APTT 34 SECONDS (21-34) 10/09/17 00:49 D-Dimer, Quantitative 2716 ng/mlDDU (0-243) H 10/09/17 00:49 Sodium 140 mmol/L (132-148) 10/09/17 05:09 Potassium 4.7 mmol/L (3.6-5.2) 10/09/17 05:09 Chloride 102 mmol/L (98-107) 10/09/17 05:09 Carbon Dioxide 28 mmol/L (22-30) 10/09/17 05:09 Anion Gap 15 (10-20) 10/09/17 05:09 BUN 25 mg/dL (9-20) H 10/09/17 05:09 Creatinine 1.4 mg/dL (0.8-1.5) 10/09/17 05:09 Est GFR ( Amer) > 60 10/09/17 05:09 Est GFR (Non-Af Amer) 58 10/09/17 05:09 Random Glucose 102 mg/dL (75-110) 10/09/17 05:09 Hemoglobin A1c 5.1 % (4.2-6.5) 10/09/17 05:09 Calcium 8.4 mg/dl (8.6-10.4) L 10/09/17 05:09 Phosphorus 3.7 mg/dL (2.5-4.5) 10/09/17 05:09 Magnesium 2.0 mg/dL (1.6-2.3) 10/09/17 05:09 Total Bilirubin 0.8 mg/dL (0.2-1.3) 10/09/17 05:09 AST 20 U/L (17-59) 10/09/17 05:09 ALT 28 U/L (21-72) 10/09/17 05:09 Alkaline Phosphatase 63 U/L (38-126) 10/09/17 05:09 Troponin I 0.0150 ng/mL (0.00-0.120) 10/09/17 00:49 Total Protein 6.9 g/dL (6.3-8.3) 10/09/17 05:09 Albumin 3.9 g/dL (3.5-5.0) 10/09/17 05:09 Globulin 3.0 gm/dL (2.2-3.9) 10/09/17 05:09 Albumin/Globulin Ratio 1.3 (1.0-2.1) 10/09/17 05:09 Triglycerides 97 mg/dL (0-149) 10/09/17 05:09 Cholesterol 149 mg/dL (0-199) 10/09/17 05:09 LDL Cholesterol Direct 76 mg/dL (0-129) 10/09/17 05:09 HDL Cholesterol 35 mg/dL (30-70) 10/09/17 05:09 Free T4 1.00 ng/dL (0.78-2.19) 10/09/17 05:09 TSH 3rd Generation 2.50 mIU/L (0.46-4.68) 10/09/17 05:09 Urine Color Mayra (YELLOW) 10/09/17 02:17 Urine Clarity Hazy (Clear) 10/09/17 02:17 Urine pH 6.0 (5.0-8.0) 10/09/17 02:17 Ur Specific [place] 1.024 (1.003-1.030) 10/09/17 02:17 Urine Protein 2+ mg/dL (NEGATIVE) H 10/09/17 02:17 Urine Glucose (UA) Normal mg/dL (Normal) 10/09/17 02:17 Urine Ketones Negative mg/dL (NEGATIVE) 10/09/17 02:17 Urine Blood Negative (NEGATIVE) 10/09/17 02:17 Urine Nitrate Negative (NEGATIVE) 10/09/17 02:17 Urine Bilirubin Negative (NEGATIVE) 10/09/17 02:17 Urine Urobilinogen Normal mg/dL (0.2-1.0) 10/09/17 02:17 Ur Leukocyte Esterase Neg Ascencion/uL (Negative) 10/09/17 02:17 Urine WBC (Auto) 33 /hpf (0-5) H 10/09/17 02:17 Urine RBC (Auto) 12 /hpf (0-3) H 10/09/17 02:17 Ur Squamous Epith Cells 5 /hpf (0-5) 10/09/17 02:17 Urine Bacteria Rare (<OCC) 10/09/17 02:17 Hyaline Casts >20 /lpf (0-2) H 10/09/17 02:17 Granular Casts (Auto) 341 /lpf (0-1) 10/09/17 02:17 Attending/Attestation - Attestation Notes (Text): Patient left against medical advice prior to my arrival. Patient was upset he was going to be searched by security, likely secondary to heroin.
[2017-10-09] MEDS ORDERED: Enoxaparin 40 mg Syringe SC SCH (10:00)
[2017-10-09] MEDS ORDERED: Pantoprazole 40 mg EC Tab PO SCH (10:00)
--- NOTE | 2017-10-09 10:15 | RAD ---
Date of service: 10/09/2017 HISTORY: chest pain COMPARISON: No prior. TECHNIQUE: Chest PA and lateral FINDINGS: LUNGS: No active pulmonary disease. PLEURA: No significant pleural effusion identified. No pneumothorax apparent. CARDIOVASCULAR: Normal. OSSEOUS STRUCTURES: No significant abnormalities. VISUALIZED UPPER ABDOMEN: Normal. OTHER FINDINGS: None. IMPRESSION: No active disease.
[2017-10-09] MEDS ORDERED: Acetylcysteine 20% Inhal Soln (4ml) PO SCH (12:00)
[2017-10-09] MEDS ORDERED: DEXTROSE 5% IVPB SCH (12:00)
[2017-10-09] MEDS ORDERED: WATER IVPB SCH (12:00)
[2017-10-09] MEDS ORDERED: ACETYLCYSTEINE IVPB SCH (12:00)
--- NOTE | 2017-10-09 12:01 | CT ---
PROCEDURE: CT Angiography Chest, Abdomen and Pelvis with and without intravenous contrast HISTORY: cp/back pain elevated dimer h/o of ivda COMPARISON: None. TECHNIQUE: Contiguous axial images of the chest, abdomen and pelvis were obtained in the phase of aortic enhancement. A noncontrast enhanced CT of the chest was also obtained to evaluate for possible intramural thrombus. Coronal and sagittal reformats were generated. IV dose administered: 100 mL Visipaque 320 Radiation dose: Total exam DLP = 1566.1 mGy-cm. This CT exam was performed using one or more of the following dose reduction techniques: Automated exposure control, adjustment of the mA and/or kV according to patient size, and/or use of iterative reconstruction technique. FINDINGS: CT ANGIOGRAPHY OF THE CHEST WITH & WITHOUT CONTRAST: AORTA (CHEST AND ABDOMEN): The thoracic and abdominal aorta are unremarkable, without aneurysm, dissection or rupture. No intramural thrombus identified in the thoracic aorta on the non-contrast ct of the chest. The celiac axis, superior mesenteric artery, inferior mesenteric artery and the renal arteries are widely patent. The pelvic arteries are unremarkable. LUNGS: Faint patchy ground-glass opacity in the right upper lobe. No nodule, mass or consolidation. MEDIASTINUM: Unremarkable. Normal caliber aorta and pulmonary arterial trunk. No aortic dissection. Normal size heart. LYMPH NODES: Unremarkable. PLEURA: Unremarkable. No pneumothorax. No pleural fluid. BONES: Unremarkable. OTHER FINDINGS: None. CT ANGIOGRAPHY OF THE ABDOMEN AND PELVIS WITH CONTRAST: LIVER: Unremarkable. No gross lesion or ductal dilatation. GALLBLADDER AND BILE DUCTS: Unremarkable. PANCREAS: Unremarkable. No gross lesion or ductal dilatation. SPLEEN: Unremarkable. ADRENALS: Unremarkable. No mass. KIDNEYS AND URETERS: Unremarkable. No hydronephrosis. No solid mass. VASCULATURE: Unremarkable. No aortic aneurysm. STOMACH AND BOWEL: Unremarkable. No obstruction. No gross mural thickening. APPENDIX: Normal appendix. PERITONEUM: Small fat containing umbilical hernia. No free fluid. No free air. LYMPH NODES: Unremarkable. No enlarged lymph nodes. BLADDER: Unremarkable. REPRODUCTIVE: Unremarkable. BONES: No acute fracture. OTHER FINDINGS: None. IMPRESSION: No evidence of aortic dissection. No gross central pulmonary embolism. Faint ground-glass opacity in the right upper lobe may be infectious/ inflammatory in etiology versus air trapping.
[2017-10-10 16:04] VITALS: O2SAT 95
--- NOTE | 2017-10-10 17:53 | CARD ---
APPROVED REPORT Date of service: 10/09/2017 EKG Measurement Heart [id number] <Conclusion> Normal sinus rhythm Normal ECG
== END 2017-10-09 07:37 | disposition left against medical advice (07) | DRG 684 ==
LOC: C.ER 23:55 → C.9E 10-09 03:12 → C.5S 10-09 07:28 → C.9E 10-09 07:40
PROVIDERS: ADMIT Internal Medicine; ATTEND Hospitalist
DX: N17.9 Acute kidney failure, unspecified (principal); R07.89 Other chest pain; D72.829 Elevated white blood cell count, unspecified; R79.1 Abnormal coagulation profile; F11.90 Opioid use, unspecified, uncomplicated

== ENCOUNTER 2017-10-21 21:06 | Emergency (ER) | payer OTHER ==
[2017-10-21 21:16] VITALS: TEMP 99.1
[2017-10-21] MEDS ORDERED: Naloxone 0.4 mg/ml Inj (Adult) IV ONE ×2 (21:18→21:39)
--- NOTE | 2017-10-21 21:20 | C.PDOC ---
History Of Present Illness 36 year old male is brought into the emergency department by ambulance after overdosing on narcotics and being found in unresponsive in public. Patient was given 2mg Narcan intranasally and his condition immediately improved. Patient is more awake in the ED. Denies heroine abuse. Claims to be using 2-5 bags/day. Seen for heroine abuse related issues 10/08/17 Time Seen by Provider: 10/21/17 21:13 Chief Complaint (Nursing): Substance Abuse History Per: Patient History/Exam Limitations: no limitations Onset/Duration Of Symptoms: Hrs Current Symptoms Are (Timing): Still Present Modifying Factor(s): Narcotics Additional History Per: EMS Past Medical History Reviewed: Historical Data, Nursing Documentation, Vital Signs Vital Signs: Last Vital Signs Temp 99.1 F 10/21/17 21:14 Pulse 95 H 10/21/17 23:04 Resp 19 10/21/17 23:04 BP 117/77 10/21/17 23:04 Pulse Ox 95 10/21/17 23:20 - Medical History PMH: No Chronic Diseases Surgical History: No Surg Hx Family History: States: No Known Family Hx - Social History Hx Alcohol Use: No (DENIED) Hx Substance Use: Yes Review Of Systems Review Of Systems: ROS cannot be obtained secondary to pt's inabilty to answer questions. Physical Exam - Physical Exam Appears: Non-toxic, No Acute Distress, Other (somnilent, lethargic) Skin: Warm, Dry Head: Atraumatic, Normacephalic Nose: Normal Oral Mucosa: Moist Throat: Normal, No Erythema, No Exudate Neck: Normal, Supple Chest: Symmetrical, No Tenderness Cardiovascular: Rhythm Regular, No Murmur Respiratory: Normal Breath Sounds, No Rales, No Rhonchi, No Wheezing, Other ( hypopnic) ED Course And Treatment O2 Sat by Pulse Oximetry: 95 (RA) Pulse Ox Interpretation: Normal Progress Note: 2114: Narcan 0.8 IV for sedation and oxygen desaturation. 2129: traniently more awake and conversant. Claims he does not know how much heroine using daily. 2199: Narcan 2.0 mg IV for persistent sedation and oxygen desaturation. 2299: patient awake, alert, vomiting. 2329: awake alert, vomiting subsided. O2 sats normal. OK for d/c. Reevaluation Time: 22:30 Reassessment Condition: Improved Critical Care Time - Critical Care Note Total Time (in mins): 90 Documented critical care: time excludes all time spent performing seperately billable procedures. Medical Decision Making Medical Decision Making: persistent heroine abuse denies abuse no IV abscesses now encouraged to carry Narcan and advise fellow abusers to use PRN wants immediate d/c. Disposition Doctor Will See Patient In The: Office Counseled Patient/Family Regarding: Studies Performed, Diagnosis - Disposition Referrals: Alcoholics Anonymous [Outside] [facility] [Outside] [facility] [Outside] [facility] [Outside] [facility] [Outside] Disposition: HOME/ ROUTINE Disposition Time: 21:19 Condition: GOOD Additional Instructions: Carry Narcan at all times INstruct friends/family to spray up your nose to save your life in case of overdose Seek outpatient Detox Call for availability- phone numbers given Prescriptions: Naloxone HCl [Narcan] 4 mg NS ONCE PRN #2 spray PRN Reason: narcotics overdose Instructions: Drug Abuse and Drug Addiction (DC) Forms: [employer] (Lithuanian) - Clinical Impression Clinical Impression: Heroin abuse - Scribe Statement The provider has reviewed the documentation as recorded by the Scribe (Victor M Bishop) Provider Attestation: All medical record entries made by the Scribe were at my direction and personally dictated by me. I have reviewed the chart and agree that the record accurately reflects my personal performance of the history, physical exam, medical decision making, and the department course for this patient. I have also personally directed, reviewed, and agree with the discharge instructions and disposition.
[2017-10-21] MEDS ORDERED: Naloxone 0.4 mg/ml Inj (Adult) ONE ×3 (21:22→21:51)
[2017-10-21 23:04] VITALS: BP 117/77; PULSE 95; RESP 19
[2017-10-21 23:09] VITALS: O2SAT 95
== END 2017-10-21 23:39 | disposition home or self-care (01) ==
LOC: C.ER 21:06
DX: F11.10 Opioid abuse, uncomplicated (principal)
CPT/HCPCS: 82948; 96374; 96376; 99285; J2310